=== PATIENT | female | born 1940 | race Caucasian/White ===

== ENCOUNTER → 2016-12-25 | Outpatient (CLI) | payer MEDICARE, OTHER ==
--- NOTE | 2016-12-25 09:12 | RAD ---
Complete abdominal ultrasound History: Neutropenia. Comparison: None. Procedure: Transabdominal ultrasound images are obtained. Findings: Visualized pancreas is unremarkable. Liver is mildly increased in echogenicity. No focal hepatic masses are identified. Right hepatic lobe measures 18.1 cm in length. Gallbladder has an unremarkable appearance. Common bile duct measures normally at 3 mm in diameter. Spleen is massively enlarged measuring 23.4 cm in length x 18.2 cm in transverse dimension x 10.0 cm in AP dimension. Right kidney is normal in size and configuration without hydronephrosis. Left kidney is normal in size and configuration without hydronephrosis. Visualized portions of the aorta and IVC have normal caliber. Increased numbers of enlarged lymph nodes are seen involving the abdomen Impression: 1. Marked splenomegaly. 2. Abdominal lymphadenopathy. 3. Echogenic, enlarged liver, compatible with fatty liver disease.
== END | disposition home or self-care (01) ==
LOC: US 07:42
PROVIDERS: ATTEND Internal Medicine Hematology & Oncology
DX: K76.0 Fatty (change of) liver, not elsewhere classified (principal); R16.1 Splenomegaly, not elsewhere classified; R59.1 Generalized enlarged lymph nodes; R59.9 Enlarged lymph nodes, unspecified
CPT/HCPCS: 76700

== ENCOUNTER 2017-03-12 07:32 | Emergency (ER) | payer MEDICARE, OTHER ==
[~2017-03-12] VITALS: Ht 172.7 cm; Wt 63.5 kg
--- NOTE | 2017-03-12 07:36 | ED.ADGEN ---
Adult General Chief Complaint Chief Complaint abdominal pain HPI HPI Patient is a 76 year old [place] female who presents with abdominal pain. Spine normal for last several days she's not had a bowel movement for the last 2-3 days. She states she's been having constipation for the last 2 weeks. She just finished rituximab for her lymphoma. She is also just finished antibiotic for UTI. She states the pain is a crampy pain is in her suprapubic area comes on for few minutes every couple hours and then resolved by itself. She's tried to have bowel movements but has only had just a small amount. She states is better when she is up walking around. She denies any nausea vomiting fevers chills. Review of Systems Review of Systems Constitutional: Denies fever or chills [] Eyes: Denies change in visual acuity, redness, or eye pain [] HENT: Denies nasal congestion or sore throat [] Respiratory: Denies cough or shortness of breath [] Cardiovascular: No additional information not addressed in HPI [] GI: Positive for abdominal pain, denies any nausea, vomiting, bloody stools or diarrhea [] : Denies dysuria or hematuria [] Musculoskeletal: Denies back pain or joint pain [] Integument: Denies rash or skin lesions [] Neurologic: Denies headache, focal weakness or sensory changes [] Endocrine: Denies polyuria or polydipsia [] Current Medications Current Medications Current Medications Medications (Trade) Dose Ordered Sig/[facility] Start Time Stop Time Status Last Admin Dose Admin Fentanyl Citrate (Fentanyl 2ml Vial) 25 mcg PRN Q15MIN PRN 03/12/17 09:50 03/13/17 09:49 Iohexol (Omnipaque 300 Mg/ml) 75 ml 1X ONCE 03/12/17 08:15 03/12/17 08:16 DC 03/12/17 08:19 75 ML Ondansetron HCl (Zofran) 4 mg 1X ONCE 03/12/17 09:45 03/12/17 09:46 DC 03/12/17 09:45 4 MG Sodium Biphosphate/ Sodium Phosphate (Fleet Adult) 133 ml 1X ONCE 03/12/17 09:50 03/12/17 09:51 DC 03/12/17 09:50 133 ML Allergies Allergies Allergies Coded Allergies Type Severity Reaction Last Updated Verified No Known Drug Allergies 03/12/17 No Physical Exam Physical Exam Constitutional: Well developed, well nourished, no acute distress, non-toxic appearance. [] HENT: Normocephalic, atraumatic, bilateral external ears normal, oropharynx moist, no oral exudates, nose normal. [] Eyes: PERRLA, EOMI, conjunctiva normal, no discharge. [] Neck: Normal range of motion, no tenderness, supple, no stridor. [] Cardiovascular:Heart rate regular rhythm, no murmur [] Lungs & Thorax: Bilateral breath sounds clear to auscultation [] Abdomen rectal exam: Bowel sounds hyperactive and high-pitched, soft, no tenderness, no masses, no pulsatile masses. Normal tone, large stool ball noted Skin: Warm, dry, no erythema, no rash. [] Back: No tenderness, no CVA tenderness. [] Extremities: No tenderness, no cyanosis, no clubbing, ROM intact, no edema. [] Neurologic: Alert and oriented X 3, normal motor function, normal sensory function, no focal deficits noted. [] Psychologic: Affect normal, judgement normal, mood normal. [] Current Patient Data Lab Results Laboratory Tests Test 03/12/17 08:00 03/12/17 08:56 03/12/17 09:55 03/12/17 10:50 White Blood Count 9.2 x10^3/uL (4.0-11.0) Red Blood Count 4.60 x10^6/uL (3.50-5.40) Hemoglobin 13.6 g/dL (12.0-15.5) Hematocrit 39.8 % (36.0-47.0) Mean Corpuscular Volume 86 fL (79-100) Mean Corpuscular Hemoglobin 29 pg (25-35) Mean Corpuscular Hemoglobin Concent 34 g/dL (31-37) Red Cell Distribution Width 15.4 % (11.5-14.5) H Platelet Count 151 x10^3/uL (140-400) Neutrophils (%) (Auto) 72 % (31-73) Lymphocytes (%) (Auto) 21 % (24-48) L Monocytes (%) (Auto) 5 % (0-9) Eosinophils (%) (Auto) 1 % (0-3) Basophils (%) (Auto) 0 % (0-3) Neutrophils # (Auto) 6.7 x10^3uL (1.8-7.7) Lymphocytes # (Auto) 1.9 x10^3/uL (1.0-4.8) Monocytes # (Auto) 0.5 x10^3/uL (0.0-1.1) Eosinophils # (Auto) 0.1 x10^3/uL (0.0-0.7) Basophils # (Auto) 0.0 x10^3/uL (0.0-0.2) Prothrombin Time 9.5 SEC (9.4-11.4) Prothrombin Time INR 0.9 (0.9-1.1) PTT 21 SEC (23-33) L Sodium Level 140 mmol/L (136-145) Potassium Level 4.1 mmol/L (3.5-5.1) Chloride Level 104 mmol/L (98-107) Carbon Dioxide Level 24 mmol/L (21-32) Anion Gap 12 (6-14) Blood Urea Nitrogen 20 mg/dL (7-20) Creatinine 1.0 mg/dL (0.6-1.0) Estimated GFR (Cockcroft-Gault) 54.1 Glucose Level 109 mg/dL (70-99) H Calcium Level 9.2 mg/dL (8.5-10.1) Total Bilirubin 0.4 mg/dL (0.2-1.0) Direct Bilirubin 0.1 mg/dL (0.0-0.2) Aspartate Amino Transferase (AST) 11 U/L (15-37) L Alanine Aminotransferase (ALT) 20 U/L (14-59) Alkaline Phosphatase 88 U/L (46-116) Creatine Kinase 16 U/L (26-192) L Creatine Kinase MB (Mass) < 0.5 ng/mL (0.0-3.6) Creatine Kinase MB Relative Index 3.1 % (0-4) Troponin I Quantitative < 0.017 ng/mL (0-0.055) Total Protein 6.8 g/dL (6.4-8.2) Albumin 3.8 g/dL (3.4-5.0) Lipase 226 U/L (73-393) Urine Opiates Screen Neg (NEG) Urine Methadone Screen Neg (NEG) Urine Barbiturates Neg (NEG) Urine Phencyclidine Screen Neg (NEG) Urine Amphetamine/Methamphetamine Neg (NEG) Urine Benzodiazepines Screen Neg (NEG) Urine Cocaine Screen Neg (NEG) Urine Cannabinoids Screen Neg (NEG) Urine Ethyl Alcohol Neg (NEG) Stool Occult Blood Positive (NEG) Urine Collection Type Unknown Urine Color Colorless Urine Clarity Clear Urine pH 7.0 Urine Specific [place] 1.010 Urine Protein Neg (NEG-TRACE) Urine Glucose (UA) Neg mg/dL (NEG) Urine Ketones (Stick) Neg mg/dL (NEG) Urine Blood Trace (NEG) Urine Nitrite Neg (NEG) Urine Bilirubin Neg (NEG) Urine Urobilinogen Dipstick 0.2 mg/dL (0.2 mg/dL) Urine Leukocyte Esterase Trace (NEG) Urine RBC Rare /HPF (0-2) Urine WBC Rare /HPF (0-4) Urine Squamous Epithelial Cells Occ /LPF Urine Transitional Epithelial Cells Occ /LPF Urine Bacteria 0 /HPF (0-FEW) Urine Mucus Slight /LPF EKG EKG EKG shows sinus rhythm with rate of [address] elevations or T-wave inversions indicative of ischemia, and axis deviation noted, QTC 426 ms, as interpreted by me. Radiology/Procedures Radiology/Procedures [address] [address] IMAGING REPORT Signed PATIENT: FANY TELLEZ ACCOUNT: [id number] : 1940 LOCATION: ER AGE: 76 SEX: F EXAM STATUS: REG ER ORD. PHYSICIAN: GUEVARA URIBE MD REASON: abd pain PROCEDURE: CT ABD PELV W/ IV CONTRST ONLY CT abdomen/pelvis with contrast 03/12/2017 at 0825 hours Indication: Constipation. Pain and cramps. History of lymphoma. Comparison: Ultrasound abdomen 12/25/2016 Technique: Multiple axial CT images of the abdomen and pelvis were acquired after the administration of intravenous contrast. Coronal and sagittal reformats are provided. 75 mL of nonionic contrast was administered. Findings: Lung bases are clear. Heart size is within normal limits. 5 mm fixation noted in the left hepatic lobe, likely sequela of prior granulomatous disease. No suspicious hepatic masses are identified. Spleen is enlarged measuring 15.3 cm in craniocaudal dimension. Heterogeneous attenuation of the spleen is likely secondary to enlarged size. Adrenal glands are normal in appearance. Gallbladder is present and normal-appearing. Pancreas appears normal. No intrahepatic or extrahepatic biliary ductal dilatation. The abdominal aorta is normal in course and caliber. IVC is patent. Multiple nonenlarged retroperitoneal lymph nodes are identified. For example, there is a left periaortic lymph node measuring 10 mm (series 2, image 27). Mesenteric lymph nodes are present measuring up to 10 mm in short axis (series 2, image 37). Kidneys enhance symmetrically with no suspicious renal masses are identified. There is no hydronephrosis. Small and large bowel are normal in caliber without inflammatory changes. No evidence for bowel obstruction. There is no free intraperitoneal air. No free fluid within the abdomen or pelvis. Urinary bladder is normal in appearance. No adnexal masses are identified. Mild degenerative changes are identified at the lumbosacral junction. No suspicious osseous lesions are identified. Impression: 1. Stigmata of lymphoma with numerous retroperitoneal and mesenteric lymph nodes, some of which are borderline enlarged. Splenomegaly measuring maximally 15.3 cm in craniocaudal dimension. 2. No acute abnormality is identified. PQRS Compliance Statement: One or more of the following individualized dose reduction techniques were utilized for this examination: 1. Automated exposure control 2. Adjustment of the mA and/or kV according to patient size 3. Use of iterative reconstruction technique DICTATED AND SIGNED BY: PACHECO MOREJON MD DATE: 03/12/17826 CC: GUEVARA URIBE MD; CHEPE ANTON MD ~ Course & Med Decision Making Course & Med Decision Making Pertinent Labs and Imaging studies reviewed. (See chart for details) The scan did not show any acute abnormality's. On rectal exam she has a fecal impaction. She was given enemas and was able to pass some stool and feels better at this time. She's being discharged home and encouraged to take MiraLAX. She is to follow-up with her care physician within next few days. Return precautions given. She is agreeable Plan B discharged in stable condition this time. Final Impression Final Impression Constipation Fecal impaction Problems: Dragon Disclaimer Dragon Disclaimer This electronic medical record was generated, in whole or in part, using a voice recognition dictation system. GUEVARA URIBE MD Mar 12, 2017 07:36
[2017-03-12 08:13] LABS: BASO % 0 % (0-3); EOS # 0.1 x10^3/uL (0.0-0.7); EOS % 1 % (0-3); HEMATOCRIT 39.8 % (36.0-47.0); HEMOGLOBIN 13.6 g/dL (12.0-15.5); LYMPH # 1.9 x10^3/uL (1.0-4.8); LYMPH % 21 % (24-48); MEAN CORPUSCULAR HEMOGLOBIN 29 pg (25-35); MEAN CORPUSCULAR HGB CONC 34 g/dL (31-37); MEAN CORPUSCULAR VOLUME 86 fL (79-100); MONO # 0.5 x10^3/uL (0.0-1.1); MONO % 5 % (0-9); NEUT # 6.7 x10^3uL (1.8-7.7); NEUT % 72 % (31-73); PLATELET COUNT 151 x10^3/uL (140-400); RED CELL DISTRIBUTION WIDTH 15.4 % (11.5-14.5); WHITE BLOOD COUNT 9.2 x10^3/uL (4.0-11.0)
[2017-03-12] MEDS ORDERED: IOHEXOL 300 MG/ML 75 ML VIAL. IV ONE (08:15)
[2017-03-12 08:30] VITALS: BP 109/88
[2017-03-12 08:36] LABS: ALBUMIN 3.8 g/dL (3.4-5.0); ALK PHOS 88 U/L (46-116); ALT (SGPT) 20 U/L (14-59); ANION GAP 12 (6-14); AST (SGOT) 11 U/L (15-37); BLOOD UREA NITROGEN 20 mg/dL (7-20); CALCIUM 9.2 mg/dL (8.5-10.1); CARBON DIOXIDE 24 mmol/L (21-32); CHLORIDE 104 mmol/L (98-107); CREATINE KINASE 16 U/L (26-192); DIRECT BILIRUBIN 0.1 mg/dL (0.0-0.2); GFR 54.1; GLUCOSE 109 mg/dL (70-99); LIPASE 226 U/L (73-393); POTASSIUM 4.1 mmol/L (3.5-5.1); SODIUM 140 mmol/L (136-145); TOTAL BILIRUBIN 0.4 mg/dL (0.2-1.0); TOTAL PROTEIN 6.8 g/dL (6.4-8.2)
--- NOTE | 2017-03-12 08:40 | RAD ---
CT abdomen/pelvis with contrast 03/12/2017 at 0825 hours Indication: Constipation. Pain and cramps. History of lymphoma. Comparison: Ultrasound abdomen 12/25/2016 Technique: Multiple axial CT images of the abdomen and pelvis were acquired after the administration of intravenous contrast. Coronal and sagittal reformats are provided. 75 mL of nonionic contrast was administered. Findings: Lung bases are clear. Heart size is within normal limits. 5 mm fixation noted in the left hepatic lobe, likely sequela of prior granulomatous disease. No suspicious hepatic masses are identified. Spleen is enlarged measuring 15.3 cm in craniocaudal dimension. Heterogeneous attenuation of the spleen is likely secondary to enlarged size. Adrenal glands are normal in appearance. Gallbladder is present and normal-appearing. Pancreas appears normal. No intrahepatic or extrahepatic biliary ductal dilatation. The abdominal aorta is normal in course and caliber. IVC is patent. Multiple nonenlarged retroperitoneal lymph nodes are identified. For example, there is a left periaortic lymph node measuring 10 mm (series 2, image 27). Mesenteric lymph nodes are present measuring up to 10 mm in short axis (series 2, image 37). Kidneys enhance symmetrically with no suspicious renal masses are identified. There is no hydronephrosis. Small and large bowel are normal in caliber without inflammatory changes. No evidence for bowel obstruction. There is no free intraperitoneal air. No free fluid within the abdomen or pelvis. Urinary bladder is normal in appearance. No adnexal masses are identified. Mild degenerative changes are identified at the lumbosacral junction. No suspicious osseous lesions are identified. Impression: 1. Stigmata of lymphoma with numerous retroperitoneal and mesenteric lymph nodes, some of which are borderline enlarged. Splenomegaly measuring maximally 15.3 cm in craniocaudal dimension. 2. No acute abnormality is identified. PQRS Compliance Statement: One or more of the following individualized dose reduction techniques were utilized for this examination: 1. Automated exposure control 2. Adjustment of the mA and/or kV according to patient size 3. Use of iterative reconstruction technique
--- NOTE | 2017-03-12 08:51 | EKG ---
[address] [address] Test Date: 2017-03-12 Test Time: 08:32:17 Pat Name: FANY TELLEZ Department: Room: Gender: F Rn Postpartum: ROSALINDA : 1940 Requested By: GUEVARA URIBE Order Number: [id number] Reading MD: Measurements Intervals [place] Rate: 81 P: 90 AR: 140 QRS: 156 QRSD: 78 T: 141 QT: 366 QTc: 426 Interpretive Statements SINUS RHYTHM ABNORMAL RIGHT AXIS DEVIATION QRS(T) CONTOUR ABNORMALITY CONSIDER ANTEROLATERAL MYOCARDIAL DAMAGE CONSIDER INFERIOR INFARCT RI6.01 Unconfirmed report No previous ECG available for comparison
[2017-03-12 09:30] LABS: AMPHETAMINE/METHAMPHETAMINE NEG (NEG); BARBITURATES NEG (NEG); BENZODIAZEPINES NEG (NEG); CANNABINOIDS NEG (NEG); COCAINE NEG (NEG); METHADONE NEG (NEG); OPIATES NEG (NEG); PHENCYCLIDINE NEG (NEG)
[2017-03-12] MEDS ORDERED: ONDANSETRON PF 4 MG/2 ML VIAL. IV ONE (09:45)
[2017-03-12] MEDS ORDERED: fentaNYL PF 100 MCG/2 ML VIAL IV PRN (09:50)
[2017-03-12] MEDS ORDERED: SODIUM PHOSPHATES 19/7GM 133 ML ENEMA. PR ONE (09:50)
[2017-03-12 10:16] LABS: FECAL OB PT POSITIVE (NEG)
[2017-03-12 11:27] LABS: BACTERIA,URINE 0 /HPF (0-FEW); BILIRUBIN,URINE NEG (NEG); CLARITY,URINE CLEAR; COLOR,URINE COLORLESS; GLUCOSE,URINE NEG (NEG); NITRITE,URINE NEG (NEG); RBC,URINE RARE /HPF (0-2); SQUAMOUS EPITHELIAL CELL,UR OCC /LPF; UROBILINOGEN,URINE 0.2 mg/dL (0.2 mg/dL); WBC,URINE RARE /HPF (0-4)
[2017-03-12] MEDS ORDERED: DOCU-109 PO (12:22)
== END 2017-03-12 13:15 | disposition home or self-care (01) ==
LOC: ER 07:32
DX: K56.41 Fecal impaction (principal); Z87.440 Personal history of urinary (tract) infections
CPT/HCPCS: 36415; 74177; 80048; 80076; 80305; 80320; 81001; 82274; 82553; 83690; 84484; 85027; 85610; 85730; 87086; 93005; 96374; 99285; J2405; Q9967; G0481